=== PATIENT | female | born 1945 | race Caucasian/White ===

== ENCOUNTER 2025-09-29 21:29 | Emergency (ER) | payer MEDICARE ==
[~2025-09-29] VITALS: Ht 157.5 cm; Wt 62.6 kg
[2025-09-29] MEDS: IV NS 0.9% 500 ML BAG IV ONE (22:03)
[2025-09-29 22:06] LABS: PLATELET COUNT (AUTO) 271 K/uL (150-450); RED BLOOD CELL COUNT(AUTO) 4.39 MIL/uL (4.0-5.2); RED CELL DISTRIBUTION WIDTH 14.1 % (11.5-15.0); WHITE BLOOD COUNT (AUTO) 6.9 K/uL (4.3-11.0)
[2025-09-29 22:14] LABS: CALCIUM, SERUM 8.8 mg/dL (8.5-10.1); CREATININE 1.0 mg/dL (0.6-1.3); SODIUM SERUM 142.0 mmol/L (136-145); UREA NITROGEN, BLOOD 22.0 mg/dL (7-18)
[2025-09-29 22:19] LABS: ASPARTATE AMINOTRANSFERASE 21.0 U/L (15-37); TOTAL PROTEIN, SERUM 7.1 g/dL (6.4-8.2)
[2025-09-29 22:20] LABS: INR 0.98 (0.91-1.10)
[2025-09-29 23:30] VITALS: BP 91/47; TEMP 97.5; O2SAT 98
== END 2025-09-29 23:31 | disposition left against medical advice (07) ==
LOC: ER 21:34
DX: R55 Syncope and collapse (principal); I95.9 Hypotension, unspecified; E86.0 Dehydration; I51.9 Heart disease, unspecified; Z88.5 Allergy status to narcotic agent
CPT/HCPCS: 99285; 70450; 71045; 93005; 85025; 80048; 80076; 36415; 85730; J7040